=== PATIENT | male | born 1990 | race Caucasian/White ===

== ENCOUNTER 2016-06-02 18:57 | Emergency (ER) | payer SELFPAY ==
[~2016-06-02] VITALS: Ht 185.4 cm; Wt 78.3 kg
[~2016-06-02 18:57] MED LIST: CLEOCIN300 MG PO; NAPROSYN500 MG PO
[2016-06-02 20:09] LABS: HEMATOCRIT 44.5 % (38.0-50.0); MCH 29.2 PG (29.0-34.0); MCHC 35.5 G/DL (30.0-36.0); MCV 82.3 FL (86-99); MEAN PLAT.VOLUME 8.8 uM^3 (9.0-12.4); PLATELET COUNT 392 K/uL (156-360); RBC DIS.WIDTH-CV 13.4 % (11.8-14.6); RBC DIS.WIDTH-SD 39.8 % (39-53); RED BLOOD COUNT 5.41 M/uL (4.00-5.50); WHITE BLOOD COUNT 12.5 K/uL (4.1-10.2)
[2016-06-02 20:23] LABS: CHLORIDE 102 mEq/L (99-109)
[2016-06-02 20:24] LABS: POTASSIUM 3.5 mEq/L (3.7-5.4); SODIUM 137 mEq/L (136-147)
[2016-06-02 20:26] LABS: GLUCOSE 111 mg/dL (70-99)
[2016-06-02 20:27] LABS: ANION GAP 12 MEQ/L (2-14)
[2016-06-02 20:28] LABS: TOTAL BILIRUBIN 0.8 mg/dL (0.0-1.0)
[2016-06-02 20:29] LABS: ALKALINE PHOSPHATASE 94 IU/L (3-129); GFR ESTIMATE (CALCULATED) > 59 mL/min/
[2016-06-02 20:31] LABS: UREA NITROGEN (BUN) 13 mg/dL (9-23)
[2016-06-02 20:33] LABS: LIPASE 20 U/L (1.0-51.0)
[2016-06-02 21:11] LABS: ADD MIUA? YES; BILIRUBIN SMALL; BLOOD NEGATIVE; COLOR DK YELLOW ((YELLOW)); GLUCOSE (STRIP) NEGATIVE; KETONES 40; LEUKOCYTES NEGATIVE; NITRITE NEGATIVE; PH, URINE 7.5 (5-8); PROTEIN (STRIP) 100; SPECIFIC GRAVITY 1.031 (1.000-1.030)
[2016-06-02 21:39] LABS: BACTERIA RARE; CASTS NONE SEEN /LPF; CRYSTALS NONE SEEN; EPITHELIAL CELLS NONE SEEN; MUCUS 3+; RED BLOOD CELLS RARE /HPF (0-5); UCUL ADDED? NO; WHITE BLOOD CELLS RARE /HPF (0-5)
[2016-06-02 21:45] VITALS: BP 139/73
[2016-06-02] MEDS ORDERED: ZOFRAN ODT4 MG PO (23:33)
[2016-06-02] MEDS ORDERED: PERCOCET 5/31 TABLET PO (23:33)
== END 2016-06-03 00:09 | disposition home or self-care (01) ==
LOC: EME 18:57 → RME 18:57
DX: R10.10 Upper abdominal pain, unspecified (principal); K82.4 Cholesterolosis of gallbladder; R82.99 Other abnormal findings in urine; R11.2 Nausea with vomiting, unspecified; F17.200 Nicotine dependence, unspecified, uncomplicated
CPT/HCPCS: 74177; 76705; 80053; 81003; 83690; 85027; 99281; 99285; J1170; J2405